=== PATIENT | female | born 2000 | race Caucasian/White ===

== ENCOUNTER 2022-01-17 16:05 | Emergency (ER) | payer OTHER, SELFPAY ==
[2022-01-17 16:51] VITALS: BP 116/78; PULSE 86; RESP 20; TEMP 37.1; O2SAT 99; BMI 20.1
[2022-01-17 17:30] VITALS: BP 125/71; PULSE 82; O2SAT 98
--- NOTE | 2022-01-17 17:53 | ED_ITS ---
HPI - Arrhythmia/Palpitations General Chief Complaint: Arrhythmia/Palpitations Stated Complaint: Tightness in chest, short of breath Time Seen by Provider: 01/17/22 16:56 History of Present Illness HPI narrative: This 21-year-old female comes in reporting some episodes of increased heart rate and some chest tightness over the past month. She states that there been a few times where she wakes up in the night and noticed that her heart was beating fast. She states that it is not pounding hard but noticed increased rate when she palpated her pulse. She does not report any nausea, vomiting, shortness of breath, or diaphoresis. She does not have any exercise intolerance. Prior to this she has been in good health. She did have some lightheadedness today when sitting at work which prompted her coming in here. She has not had any fevers or sign of infection. She does take a control pill but no other medications and no street drugs. Related Data Allergies Allergy/AdvReac Type Severity Reaction Status Date / Time No Known Drug Allergies Allergy Verified 01/17/22 16:50 Review of Systems Status of ROS: Reports: 10 or more systems reviewed and unremarkable except as noted in History and below Narrative: Constitutional: No fevers, no weight gain or loss. Eyes: No discharge. No vision changes. HENT: No congestion, no sore throat, no ear pain. Cardiovascular: She reports chest tightness but not pain. She also reports episodes of increased heart rate. Respiratory: No shortness of breath, no wheezes, no cough. Gastrointestinal: No abdominal pain, no vomiting, no diarrhea. Genitourinary: No dysuria, no hematuria. Musculoskeletal: Normal range of motion. Skin: No rashes, no pruritis. Neurological: No dizziness, weakness, sensory change, speech change. Endo/Heme/Allergies: No bruising or bleeding. No polydipsia. Pysch: no suicidality, no anxiety, no insomnia. All other systems reviewed and are negative. PFSH PFSH Social History Smoking Status: Never smoker Do you use any of these nicotine containing products: None Second hand tobacco smoke exposure: No How often do you have a drink containing alcohol: never How often do you have six or more drinks on one occasion: Never AUDIT-C Alcohol total score: 0 Non-prescribed substance use: denies use service: No Exam Narrative: Exam Narrative: Constitutional: Well-developed, well-nourished, no acute distress. HEENT: Normocephalic, atraumatic. Neck: Normal range of motion. Nontender. Supple. Heart: Regular. No murmurs. Normal rate. Intact distal pulses. Lungs: Clear to auscultation. No chest discomfort. No wheezes, rhonchi, or r ales. Abdomen: Normal bowel sounds. Nontender. No rebound tenderness. Genitalia: Deferred. Back: No midline tenderness. Normal range of motion. Extremities: Normal range of motion. No injury. Skin: Intact. No rash. Warm. No erythema or pallor. Neurologic: No altered sensation. No weakness. Alert and oriented. Psychiatric: No suicidality. No anxiety or depression. No insomnia. Nursing notes and vitals signs are reviewed. Const: Vital Signs, click to edit/add: Vital Signs - 24 hr 01/17/22 16:51 Temperature 98.7 F Pulse Rate [Pulse Oximeter] 86 Respiratory Rate 20 Blood Pressure [Ri ght Upper Arm] 116/78 Pulse Oximetry 99 Oxygen Delivery Me thod Room Air Course Vital Signs Vital signs: Initial Vital Signs Temperature 98.7 F 01/17/22 16:51 Temperature Source Temporal Artery Scan 01/17/22 16:51 Pulse Rate 86 01/17/22 16:51 Pulse Rhythm 01/17/22 16:51 Respiratory Rate 20 01/17/22 16:51 Blood Pressure 116/78 01/17/22 16:51 Blood Pressure Mean 90 01/17/22 16:51 Blood Pressure Position Sitting 01/17/22 16:51 Pulse Oximetry 99 01/17/22 16:51 Oxygen Delivery Method 01/17/22 16:51 Vital Signs Temperature 98.7 F 01/17/22 16:51 Pulse Rate 86 01/17/22 16:51 Respiratory Rate 20 01/17/22 16:51 Blood Pressure 116/78 01/17/22 16:51 Pulse Oximetry 99 01/17/22 16:51 Oxygen Delivery Method 01/17/22 16:51 Temperature 98.7 F 01/17/22 16:51 Pulse Rate 86 01/17/22 16:51 Respiratory Rate 20 01/17/22 16:51 Blood Pressure 116/78 01/17/22 16:51 Pulse Oximetry 99 01/17/22 16:51 Oxygen Delivery Method 01/17/22 16:51 MDM - Arrhythmia/Palpitations MDM Narrative Medical decision making narrative: This patient reports some episodes of rapid heart rate that more typically seem to occur at night. She states that she wakes up with increased heart rate and has anxiety related to this. She does not have any cardiac risk factors and does not display any particular signs or symptoms that are suspicious for cardiac disease. It seems more likely this is a compensatory tachycardia related to anxiety. Her EKG is completely normal today. I did unofficially use bedside ultrasound to examine her heart and lungs with normal findings. She is satisfied with these results. I did also talk about the role of a Holter monitor. She will consider this and understands that she can make an appointment in the clinic to [place] this diagnostic tool if desired and needed. ECG Data Attestation: I personally reviewed and interpreted this ECG as follows: Interpretation: Normal sinus rhythm. Rate 69 beats per minute. There are no ST or T-wave abnormalities. Discharge Plan Discharge Clinical Impression: Anxiety, Tachycardia, paroxysmal Patient Disposition: Home, Self-Care Condition: Stable Additional Instructions: Follow up with MD as needed or return if worsening. Follow Up/Referrals: Provider,Not a Local [Primary Care Provider] - Stand Alone Forms: [place] Info Instructions
[2022-01-17 18:00] VITALS: BP 120/82; PULSE 83; O2SAT 99
[2022-01-17 18:30] VITALS: BP 119/80; PULSE 86; RESP 18; O2SAT 99
== END 2022-01-17 18:57 | disposition home or self-care (01) ==
PROVIDERS: Emergency Provider Emergency Medicine Emergency Medical Services
DX: F41.9 Anxiety disorder, unspecified (principal); I47.9 Paroxysmal tachycardia, unspecified
CPT/HCPCS: 93005; 99283; 99284

== ENCOUNTER 2022-04-11 14:28 | Outpatient (CLI) | payer OTHER, SELFPAY | END 2022-04-11 14:29 | disposition home or self-care (01) | LOC: AMB 04-19 02:42 | PROVIDERS: Visit Provider Family Medicine | DX: R55 Syncope and collapse (principal) | CPT/HCPCS: A0998 ==